=== PATIENT | male | born 1950 | race Caucasian/White ===

== ENCOUNTER 2025-03-20 10:20 | Outpatient (CLI) | payer OTHER, MEDICAID | END 2025-03-20 10:21 | disposition home or self-care (01) | LOC: CT 10:20 | PROVIDERS: ATTEND Nurse Practitioner Family | DX: Z12.2 Encounter for screening for malignant neoplasm of respiratory organs (principal); N28.1 Cyst of kidney, acquired; R93.2 Abnormal findings on diagnostic imaging of liver and biliary tract | CPT/HCPCS: 71250 ==